=== PATIENT | female | born 1990 | race African-American/Black ===

== ENCOUNTER 2018-03-22 20:41 | Emergency (ER) | payer OTHER, SELFPAY ==
[2018-03-22 21:08] LABS: Bilirubin Negative (Negative); Blood, Urine Negative (Negative); Clarity CLOUDY (Clear); Glucose, Urine (Dipstick) Negative (Negative); Leukocyte Large (Negative); Nitrite Negative (Negative); Protein, Urine (Dipstick) Negative (Neg-Trace); Specific Gravity, Urine 1.028 (1.002-1.036); pH, Urine 5.5 (5.0-9.0)
[2018-03-22 21:10] LABS: Pregnancy Test - Urine (BHCG) Negative (Negative); Pregu Control Background? CLEAR/WHITE (CLR/WHITE); Pregu Control Bar Appear? YES (CONTROL BAR); Specific Gravity 1.028 (1.002-1.036)
[2018-03-22 21:15] LABS: Bacteria/HPF Rare-Few HPF (None Seen); Hyaline Casts/LPF 7-10 HYALINE CAST LPF (0-3 Hyaline); Pathc Cast-AUWi Flag 1.45 (0-2.49); Squamous Epithelial 21-50 HPF (0-3); WBC/HPF 21-50 HPF (0-3)
[2018-03-22 21:16] LABS: Yeast-AUWi Flag 354.5 (0-25.0)
[2018-03-22 21:23] LABS: RBC/HPF None Seen HPF (0-3); Yeast-All Forms 2+ HPF (None Seen)
[2018-03-24 22:33] LABS: Chlamydia by PCR Not Detected (NotDetected); GC by PCR Not Detected (NotDetected)
== END 2018-03-22 22:00 | disposition home or self-care (01) ==
LOC: ERS 20:41
DX: B37.3 Candidiasis of vulva and vagina (principal)
CPT/HCPCS: 36416; 81003; 81015; 81025; 87480; 87491; 87510; 87591; 87660; 99283

== ENCOUNTER 2018-11-02 21:10 | Emergency (ER) | payer SELFPAY ==
[2018-11-02] MEDS ORDERED: Ondansetron PF 4 MG/2 ML Vial ONE (21:39)
[2018-11-02 21:46] LABS: #Basophils 0.1 thou/uL (0.0-0.2); #Eosinphils 0.1 thou/uL (0.0-0.7); #Lymphocytes 2.8 thou/uL (1.20-3.40); #Monocytes 0.6 thou/uL (0.11-0.59); #Neutrophils 3.7 thou/uL (1.40-6.50); %Basophils 0.8 % (0.0-1.0); %Eosinophils 1.3 % (0.0-10.0); %Lymphocytes 38.9 % (21.0-51.0); %Monocytes 7.8 % (0.0-10.0); %Neutrophils 51.1 % (42.0-75.0); Hemoglobin 11.2 g/dL (12.0-16.0); Mean Corpuscular HGB CONC 31.8 g/dL (32.0-36.0); Mean Corpuscular Hemoglobin 25.9 pg (27.0-31.0); Mean Corpuscular Volume 81.5 fL (78.0-98.0); Mean Platelet Volume 8.3 fL (7.4-10.4); Platelet Count 208 thou/uL (130-400); Red Blood Cell (RBC) Count 4.33 mill/uL (4.20-5.40); White Blood Cell (WBC) Count 7.3 thou/uL (4.8-10.8)
[2018-11-02 21:52] LABS: Bilirubin Negative (Negative); Blood, Urine Negative (Negative); Clarity Clear (Clear); Glucose, Urine (Dipstick) Negative (Negative); Leukocyte Negative (Negative); Nitrite Negative (Negative); Protein, Urine (Dipstick) Negative (Neg-Trace); Specific Gravity, Urine 1.015 (1.005-1.030)
[2018-11-02 22:08] LABS: ALT (SGPT) 19 U/L (8-55); AST (SGOT) 17 U/L (5-34); Albumin 4.1 g/dL (3.5-5.0); Alkaline Phosphatase 60 U/L (40-150); Anion Gap 14 mmol/L (10-20); BHCG - Serum Negative (NEGATIVE); BUN (Urea Nitrogen) 12 mg/dL (7.0-18.7); Bilirubin, Total 0.3 mg/dL (0.2-1.2); CK (CPK) 139 U/L (29-168); Calc. Creatinine Clearance 0 mL/min (70-130); Calcium 9.2 mg/dL (7.8-10.44); Carbon Dioxide 22 mmol/L (22-29); Chloride 106 mmol/L (98-107); Estimated GFR-MDRD Greater than 90; Globulin 3.1 g/dL (2.4-3.5); Glucose 93 mg/dL (70-105); Lipase 34 U/L (8-78); Potassium 4.1 mmol/L (3.5-5.1); Pregs Control Background? CLEAR/WHITE (CLR/WHITE); Pregs Control Bar Appear? YES (CONTROL BAR); Protein, Total 7.2 g/dL (6.0-8.3); Sodium 138 mmol/L (136-145)
== END 2018-11-02 22:59 | disposition home or self-care (01) ==
LOC: ERS 21:10
DX: R10.30 Lower abdominal pain, unspecified (principal); R11.2 Nausea with vomiting, unspecified
CPT/HCPCS: 80053; 81003; 82550; 83605; 83690; 84703; 85025; 96361; 96372; 96374; J0500; J2405

== ENCOUNTER 2018-12-05 21:22 | Emergency (ER) | payer SELFPAY ==
[2018-12-05 22:03] LABS: Bilirubin Negative (Negative); Blood, Urine Large (Negative); Glucose, Urine (Dipstick) Negative (Negative); Leukocyte Moderate (Negative); Nitrite Negative (Negative); Protein, Urine (Dipstick) 100 mg/dL (Neg-Trace); Urobilinogen 0.2 mg/dL (Less than 2)
[2018-12-05 22:07] LABS: Pregnancy Test - Urine (BHCG) Negative (Negative); Pregu Control Background? CLEAR/WHITE (CLR/WHITE); Pregu Control Bar Appear? YES (CONTROL BAR); Specific Gravity 1.025 (1.002-1.036)
[2018-12-05 22:09] LABS: Clarity Cloudy (Clear)
[2018-12-05 22:10] LABS: Squamous Epithelial 0-3 HPF (0-3); WBC/HPF Greater Than 50 HPF (0-3)
[2018-12-05 22:11] LABS: Bacteria/HPF 2+ HPF (None Seen)
== END 2018-12-05 22:30 | disposition home or self-care (01) ==
LOC: ERS 21:22
DX: N39.0 Urinary tract infection, site not specified (principal); Z79.899 Other long term (current) drug therapy
CPT/HCPCS: 81003; 81015; 81025; 99283

== ENCOUNTER 2018-12-22 13:29 | Emergency (ER) | payer SELFPAY ==
[2018-12-22 14:44] LABS: #Lymphocytes 0.8 thou/uL (1.20-3.40); #Monocytes 0.3 thou/uL (0.11-0.59); #Neutrophils 4.4 thou/uL (1.40-6.50); %Basophils 0.2 % (0.0-1.0); %Eosinophils 0.1 % (0.0-10.0); %Lymphocytes 14.8 % (21.0-51.0); %Monocytes 5.3 % (0.0-10.0); %Neutrophils 79.6 % (42.0-75.0); Hemoglobin 11.5 g/dL (12.0-16.0); Mean Corpuscular HGB CONC 32.6 g/dL (32.0-36.0); Mean Corpuscular Hemoglobin 26.7 pg (27.0-31.0); Mean Corpuscular Volume 82.1 fL (78.0-98.0); Mean Platelet Volume 7.9 fL (7.4-10.4); Platelet Count 207 thou/uL (130-400); RBC Distribution Width 11.8 % (11.5-14.5); Red Blood Cell (RBC) Count 4.31 mill/uL (4.20-5.40); White Blood Cell (WBC) Count 5.5 thou/uL (4.8-10.8)
[2018-12-22] MEDS ORDERED: Ondansetron ODT 4 MG TAB ONE (14:53)
[2018-12-22 14:58] LABS: ALT (SGPT) 12 U/L (8-55); AST (SGOT) 16 U/L (5-34); Albumin 3.9 g/dL (3.5-5.0); Alkaline Phosphatase 60 U/L (40-150); Anion Gap 9 mmol/L (10-20); BUN (Urea Nitrogen) 11 mg/dL (7.0-18.7); Bilirubin, Total 0.6 mg/dL (0.2-1.2); Calc. Creatinine Clearance 0 mL/min (70-130); Calcium 8.6 mg/dL (7.8-10.44); Carbon Dioxide 23 mmol/L (22-29); Chloride 108 mmol/L (98-107); Estimated GFR-MDRD Greater than 90; Globulin 3.2 g/dL (2.4-3.5); Glucose 86 mg/dL (70-105); Lipase 22 U/L (8-78); Potassium 3.8 mmol/L (3.5-5.1); Protein, Total 7.1 g/dL (6.0-8.3); Sodium 136 mmol/L (136-145)
[2018-12-22] MEDS ORDERED: Morphine 4 MG/ML VIAL ONE ×2 (15:43→16:25)
[2018-12-22] MEDS ORDERED: ISOVUE-370 76%-LOCM 1 ML ONE (16:01)
[2018-12-22] MEDS ORDERED: Metoclopramide HCl 10 MG/2 ML VIAL ONE (16:02)
[2018-12-22 16:15] LABS: BHCG - Serum Negative (NEGATIVE); Pregs Control Background? CLEAR/WHITE (CLR/WHITE); Pregs Control Bar Appear? YES (CONTROL BAR)
[2018-12-22 17:04] LABS: Bilirubin Negative (Negative); Blood, Urine Negative (Negative); Clarity Clear (Clear); Glucose, Urine (Dipstick) Normal (Negative); Leukocyte Negative Leu/uL (Negative); Nitrite Negative (Negative); Protein, Urine (Dipstick) 10 mg/dL (Neg-Trace); Urobilinogen Normal mg/dL (Less than 2)
--- NOTE | 2018-12-22 17:51 | ULT ---
EXAM: TRANSABDOMINAL AND ENDOVAGINAL PELVIC ULTRASOUND: 12/22/18 HISTORY: Right pelvic pain. COMPARISON: 09/03/16. TECHNIQUE: Transabdominal and endovaginal imaging of the pelvis was performed. Ovaries are interrogated with waters scale imaging. FINDINGS: Pelvic structures could not be assessed endovaginally. Based on the transabdominal images, the uterus measures 5.4 x 7.2 x 4.2 cm. There is heterogeneity of the myometrium without discrete myometrial mass. Limited evaluation of the endometrium. The visualiz ed endometrium measures 0.7 cm. Limited evaluation of the right ovary which appears to have a normal echotexture and measures 1.5 x 3 .8 x 3.1 cm. Limited evaluation of the left ovary which has a grossly normal echotexture measuring 3.6 x 1.2 x 1.6 cm. There is no definite free fluid. IMPRESSION: Suboptimal evaluation of the pelvic structures. No evidence of acute abnormality based upon the trans abdominal images. POS: OFF
--- NOTE | 2018-12-22 18:03 | PDOC.EVN ---
Event Note - Event Note Event Note: [facility] [employer] Time: 1755 ED informal consult Case reviewed at the request of Dr Lyle in the ED. This is a phone informal consult. DX: Pelvic pain on right Patient is a 28 yo on hormonal suppression (implant) with right lower quad pain. Patient first seen by Dr Dominique prior to Dariela taking over. She has a sono which showed no masses, no ovarian asymptry, unclear flow on right to ovary. mild free fluid. CT scan done as well, and I reviewed it with the radiologist on the pone just now. There are no pelvic masses, no uterine masses, normal appendix. Slight thickened ES. Radiologist does not suspect ovarian edema C/W torsion. Patient feels better now. As ovarian/adnexa, masses are almost always present with torsion...torsion seems unlikely. Also, on implant suppresion. Do not feel picture warrents surgical eval as WBC is normal, no masses on radiological images, and now improved. She will follow up if SXS progress.
--- NOTE | 2018-12-22 18:53 | CT ---
CT OF ABDOMEN AND PELVIS PERFORMED WITH INTRAVENOUS CONTRAST ENHANCMENT: 12/22/18 HISTORY: Right lower quadrant abdominal pain. History of a UTI. The lung bases are clear. The liver, spleen, pancreas and gallbladder regions appear unremarkable. Right and left adrenal glands are normal in appearance. There is a punctate mid pole left renal calc ulus seen. No obstruction. The appendix is retrocecal in location and normal in appearance. CT OF PELVIS PERFORMED WITH CONTRAST ENHANCEMENT: There is trace free fluid noted in the pelvis. Endometrium appears slightly thickened. No adenopathy or mass. IMPRESSION: 1. Punctate nonobstructing mid pole and a 3 to 4 mm lower pole left renal calculus and a tiny pu nctate nonobstructing right renal calculus. 2. Normal appendix. POS: [facility]
== END 2018-12-22 18:50 | disposition home or self-care (01) ==
LOC: ERS 13:29
DX: R10.9 Unspecified abdominal pain (principal); R10.813 Right lower quadrant abdominal tenderness
CPT/HCPCS: 36415; 74177; 76856; 80053; 81003; 83690; 84703; 85025; 96361; 96374; 96375; J2270; J2765; Q0162; Q9966

== ENCOUNTER 2020-01-05 14:39 | Emergency (ER) | payer SELFPAY ==
[2020-01-05] MEDS ORDERED: Ketorolac Tromethamine 30 MG/ML VIAL ONE (16:21)
== END 2020-01-05 16:39 | disposition home or self-care (01) ==
LOC: ERS 14:39
DX: S89.91XA Unspecified injury of right lower leg, initial encounter (principal); V89.2XXA Person injured in unspecified motor-vehicle accident, traffic, initial encounter
CPT/HCPCS: 96372; 99283; J1885

== ENCOUNTER 2020-10-18 14:03 | Emergency (ER) | payer SELFPAY | END 2020-10-18 15:35 | disposition home or self-care (01) | LOC: ERS 14:03 | DX: J30.9 Allergic rhinitis, unspecified (principal) | CPT/HCPCS: 99281 ==

== ENCOUNTER 2020-11-17 03:44 | Emergency (ER) | payer SELFPAY ==
[2020-11-17] MEDS ORDERED: traMADol HCl 50 MG TAB ONE (05:14)
== END 2020-11-17 05:23 | disposition home or self-care (01) ==
LOC: ERS 03:44
DX: K64.4 Residual hemorrhoidal skin tags (principal)
CPT/HCPCS: 99283

== ENCOUNTER 2020-11-17 16:25 | Emergency (ER) | payer SELFPAY | END 2020-11-17 17:26 | disposition left against medical advice (07) | LOC: ERS 16:25 | DX: Z53.21 Procedure and treatment not carried out due to patient leaving prior to being seen by health care provider (principal) | CPT/HCPCS: 93005 ==

== ENCOUNTER 2021-01-08 19:28 | Emergency (ER) | payer SELFPAY | END 2021-01-08 22:53 | disposition home or self-care (01) | LOC: ERS 19:28 | DX: R06.00 Dyspnea, unspecified (principal) | CPT/HCPCS: 71045; 93005 ==

== ENCOUNTER 2021-10-26 09:13 | Emergency (ER) | payer SELFPAY ==
[2021-10-26 10:03] LABS: #Basophils 0.1 thou/uL (0.0-0.2); #Eosinphils 0.1 thou/uL (0.0-0.7); #Monocytes 0.6 thou/uL (0.11-0.59); #Neutrophils 2.8 thou/uL (1.40-6.50); %Basophils 1.5 % (0.0-1.0); %Lymphocytes 35.7 % (21.0-51.0); %Monocytes 10.5 % (0.0-10.0); %Neutrophils 50.2 % (42.0-75.0); Hemoglobin 11.3 g/dL (12.0-16.0); Mean Corpuscular HGB CONC 32.9 g/dL (32.0-36.0); Mean Corpuscular Hemoglobin 27.6 pg (27.0-31.0); Mean Platelet Volume 7.5 fL (7.4-10.4); Platelet Count 228 thou/uL (130-400); RBC Distribution Width 11.8 % (11.5-14.5); Red Blood Cell (RBC) Count 4.08 mill/uL (4.20-5.40); White Blood Cell (WBC) Count 5.6 thou/uL (4.8-10.8)
[2021-10-26 10:26] LABS: ALT (SGPT) 10 U/L (8-55); AST (SGOT) 15 U/L (5-34); Alkaline Phosphatase 52 U/L (40-110); Anion Gap 10 mmol/L (10-20); BUN (Urea Nitrogen) 6 mg/dL (7.0-18.7); Bilirubin, Total 0.9 mg/dL (0.2-1.2); Calc. Creatinine Clearance 0 mL/min (70-130); Calcium 9.1 mg/dL (7.8-10.44); Carbon Dioxide 22 mmol/L (22-29); Chloride 105 mmol/L (98-107); Globulin 3.3 g/dL (2.4-3.5); Glucose 89 mg/dL (70-105); Lipase 19 U/L (8-78); Potassium 3.8 mmol/L (3.5-5.1); Protein, Total 7.3 g/dL (6.0-8.3); Sodium 133 mmol/L (136-145)
[2021-10-26] MEDS ORDERED: Famotidine 20 MG TAB ONE (11:08)
[2021-10-26] MEDS ORDERED: Ondansetron ODT 4 MG TAB ONE (11:08)
[2021-10-26] MEDS ORDERED: Dicyclomine 20 MG TAB ONE (11:08)
[2021-10-26 11:33] LABS: Bilirubin Negative (Negative); Blood, Urine Negative (Negative); Glucose, Urine (Dipstick) Normal (Negative); Ketone, Urine 10 mg/dL (Negative); Leukocyte Negative Leu/uL (Negative); Nitrite Negative (Negative); Protein, Urine (Dipstick) 10 mg/dL (Neg-Trace); Specific Gravity, Urine 1.026 (1.002-1.036); pH, Urine 6.5 (5.0-9.0)
[2021-10-26 11:34] LABS: Clarity Hazy (Clear)
[2021-10-26 11:35] LABS: Pregnancy Test - Urine (BHCG) POSITIVE (Negative); Pregu Control Background? CLEAR/WHITE (CLR/WHITE); Pregu Control Bar Appear? YES (CONTROL BAR); Specific Gravity 1.026 (1.002-1.036)
== END 2021-10-26 14:42 | disposition short-term general hospital (02) ==
LOC: ERS 09:13
DX: O36.80X0 Pregnancy with inconclusive fetal viability, not applicable or unspecified (principal); Z3A.01 Less than 8 weeks gestation of pregnancy
CPT/HCPCS: 36415; 76856; 80053; 81003; 81025; 83690; 84702; 85025; 86850; 86900; 86901; Q0162

== ENCOUNTER 2021-11-01 18:22 | Emergency (ER) | payer SELFPAY ==
[2021-11-01] MEDS ORDERED: Ondansetron ODT 4 MG TAB ONE (19:58)
== END 2021-11-01 19:56 | disposition home or self-care (01) ==
LOC: ERS 18:22
DX: O21.9 Vomiting of pregnancy, unspecified (principal)
CPT/HCPCS: 99283; Q0162

== ENCOUNTER 2021-12-28 10:09 | Emergency (ER) | payer SELFPAY ==
[2021-12-28] MEDS ORDERED: Acetaminophen 500 MG TAB ONE (12:00)
== END 2021-12-28 13:22 | disposition home or self-care (01) ==
LOC: ERS 10:09
DX: O99.891 Other specified diseases and conditions complicating pregnancy (principal); R51.9 Headache, unspecified
CPT/HCPCS: 99283

== ENCOUNTER 2022-04-21 09:39 | Outpatient (CLI) | payer OTHER | END 2022-04-21 09:40 | disposition home or self-care (01) | LOC: BICULT 09:39 | PROVIDERS: ATTEND Family Medicine | DX: O09.893 Supervision of other high risk pregnancies, third trimester (principal); Z3A.31 31 weeks gestation of pregnancy | CPT/HCPCS: 76805 ==

== ENCOUNTER 2023-10-26 16:26 | Emergency (ER) | payer OTHER, SELFPAY ==
[2023-10-26 18:53] LABS: #Basophils 0.03 10x3/uL (0.0-0.2); %Basophils 0.5 % (0.0-1.0); %Eosinophils 2.1 % (0.0-10.0); %Lymphocytes 39.7 % (21.0-51.0); %Monocytes 10.4 % (0.0-10.0); %Neutrophils 47.1 % (42.0-75.0); Hematocrit 34.3 % (36.0-47.0); Hemoglobin 11.2 g/dL (12.0-16.0); Mean Corpuscular HGB CONC 32.7 g/dL (32.0-36.0); Mean Corpuscular Hemoglobin 26.4 pg (27.0-31.0); Mean Corpuscular Volume 80.7 fL (78.0-98.0); Mean Platelet Volume 10.4 fL (7.4-10.4); Platelet Count 251 10x3/uL (130-400); RBC Distribution Width 12.9 % (11.5-14.5); Red Blood Cell (RBC) Count 4.25 mill/uL (4.20-5.40)
[2023-10-26 18:59] LABS: BHCG - Serum Negative (NEGATIVE); Pregs Control Background? CLEAR/WHITE (CLR/WHITE); Pregs Control Bar Appear? YES (CONTROL BAR)
[2023-10-26 19:09] LABS: Troponin I 0.014 ng/mL (< 0.028)
[2023-10-26 19:15] LABS: ALT (SGPT) 6 U/L (8-55); AST (SGOT) 15 U/L (5-34); Albumin 3.5 g/dL (3.5-5.0); Alkaline Phosphatase 65 U/L (40-110); Anion Gap 11 mmol/L (10-20); BUN (Urea Nitrogen) 9 mg/dL (7.0-18.7); Bilirubin, Total 0.5 mg/dL (0.2-1.2); Calc. Creatinine Clearance 0 mL/min (70-130); Calcium 8.4 mg/dL (7.8-10.44); Carbon Dioxide 24 mmol/L (22-29); Chloride 107 mmol/L (98-107); Estimated GFR 120; Globulin 3.5 g/dL (2.4-3.5); Glucose 80 mg/dL (70-105); Potassium 3.7 mmol/L (3.5-5.1); Sodium 138 mmol/L (136-145)
== END 2023-10-26 19:42 | disposition home or self-care (01) ==
LOC: ERS 16:26
DX: R55 Syncope and collapse (principal); X50.9XXA Other and unspecified overexertion or strenuous movements or postures, initial encounter; Y99.0 Civilian activity done for income or pay
CPT/HCPCS: 80053; 84484; 84703; 85025; 93005; 96360; 96361

== ENCOUNTER 2024-05-16 01:06 | Emergency (ER) | payer SELFPAY ==
[2024-05-16] MEDS ORDERED: Ondansetron PF 4 MG/2 ML Vial ONE (01:34)
[2024-05-16] MEDS ORDERED: Morphine 4 MG/ML VIAL ONE (01:34)
[2024-05-16 01:39] LABS: Pregnancy Test - Urine (BHCG) Negative (Negative); Pregu Control Background? CLEAR/WHITE (CLR/WHITE); Pregu Control Bar Appear? YES (CONTROL BAR); Specific Gravity 1.016 (1.002-1.036)
[2024-05-16 01:42] LABS: Bacteria/HPF 3+ HPF (None Seen); Bilirubin Negative (Negative); Blood, Urine 1+ (Negative); CAUTI Indications for Culture Pelvic or flank pain; Clarity Turbid (Clear); Glucose, Urine (Dipstick) Normal (Negative); Ketone, Urine Negative (Negative); Leukocyte 500 Leu/uL (Negative); Nitrite Negative (Negative); Protein, Urine (Dipstick) 20 mg/dL (Neg-Trace); Specific Gravity, Urine 1.016 (1.002-1.036); Urobilinogen Normal mg/dL (Less than 2); WBC/HPF Greater than 50 HPF (0-3)
[2024-05-16 01:46] LABS: Urine Culture Reflex Yes Yes
[2024-05-16 01:58] LABS: #Basophils 0.03 10x3/uL (0.0-0.2); %Basophils 0.3 % (0.0-1.0); %Eosinophils 0.3 % (0.0-10.0); %Lymphocytes 14.5 % (21.0-51.0); %Monocytes 11.2 % (0.0-10.0); %Neutrophils 73.5 % (42.0-75.0); Hematocrit 33.5 % (36.0-47.0); Hemoglobin 10.6 g/dL (12.0-16.0); Mean Corpuscular HGB CONC 31.6 g/dL (32.0-36.0); Mean Corpuscular Hemoglobin 24.7 pg (27.0-31.0); Mean Corpuscular Volume 77.9 fL (78.0-98.0); Mean Platelet Volume 10.1 fL (7.4-10.4); Platelet Count 231 10x3/uL (130-400); RBC Distribution Width 13.2 % (11.5-14.5)
[2024-05-16] MEDS ORDERED: Ketorolac Tromethamine 30 MG (1 mL) VIAL ONE (02:04)
[2024-05-16 02:13] LABS: ALT (SGPT) 10 U/L (8-55); AST (SGOT) 21 U/L (5-34); Albumin 3.3 g/dL (3.5-5.0); Alkaline Phosphatase 70 U/L (40-110); Anion Gap 14 mmol/L (10-20); BUN (Urea Nitrogen) 12 mg/dL (7.0-18.7); Bilirubin, Total 0.5 mg/dL (0.2-1.2); Calc. Creatinine Clearance 0 mL/min (70-130); Calcium 8.9 mg/dL (7.8-10.44); Carbon Dioxide 18 mmol/L (22-29); Chloride 108 mmol/L (98-107); Estimated GFR 119; Globulin 4.9 g/dL (2.4-3.5); Glucose 96 mg/dL (70-105); Lipase 17 U/L (8-78); Potassium 4.3 mmol/L (3.5-5.1); Protein, Total 8.2 g/dL (6.0-8.3); Sodium 136 mmol/L (136-145)
[2024-05-16] MEDS ORDERED: cefTRIAXone (ROCEPHIN) 2 GM VIAL ONE (02:36)
== END 2024-05-16 05:05 | disposition home or self-care (01) ==
LOC: ERS 01:06
DX: N39.0 Urinary tract infection, site not specified (principal)
CPT/HCPCS: 74176; 76705; 80053; 81001; 81025; 83690; 85025; 87086; 87186; 96374; 96375; J0696; J1885; J2272; J2405